=== PATIENT | female | born 1945 | race Caucasian/White ===

== ENCOUNTER 2017-07-16 14:59 | Outpatient (CLI) | payer MEDICARE, OTHER ==
--- NOTE | 2017-07-23 08:20 | MMO ---
BILATERAL SCREENING MAMMOGRAM: DATE: 07/16/2017 HISTORY: A 71-year-old female for screening mammography. COMPARISON: 06/28/2012. FINDINGS: Bilateral MLO and CC views of the breasts show scattered fibroglandular breast tissue. Bilateral va scular calcifications are seen. Other benign-appearing calcifications are seen in the both breasts. There is no evidence of suspicious mass, suspicious cluster of microcalcifications, or area of arch itectural distortion. Interpretation of this mammogram was performed with the assistance of computer-aided detection. IMPRESSION: BIRADS 2: Benign Finding(s) Annual screening mammography is recommended. POS: [facility]
== END 2017-07-16 15:00 | disposition home or self-care (01) ==
LOC: MAMMO 14:59
PROVIDERS: ATTEND Family Medicine
DX: Z12.31 Encounter for screening mammogram for malignant neoplasm of breast (principal)
CPT/HCPCS: 77067; G0202

== ENCOUNTER 2018-03-22 13:55 | Outpatient (CLI) | payer MEDICARE ==
--- NOTE | 2018-03-22 15:58 | PET ---
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 TECHNIQUE: PET CT of the brain is performed following the intravenous administration of 7.5 millicuries of 15-fl uorodeoxyglucose in the left arm antecubital fossa. FINDINGS: Fairly symmetric FDG localization is seen in the hemispheres bilaterally. No significant hypometabolism is seen in the temporoparietal lobes. IMPRESSION: Unremarkable exam. POS: [facility]
== END 2018-03-22 13:56 | disposition home or self-care (01) ==
LOC: PET 13:55
PROVIDERS: ATTEND Psychiatry & Neurology Neurology
DX: G31.1 Senile degeneration of brain, not elsewhere classified (principal)
CPT/HCPCS: 78608; A9552

== ENCOUNTER 2018-09-12 13:57 | Outpatient (CLI) | payer MEDICARE | END 2018-09-12 13:58 | disposition home or self-care (01) | LOC: BICMAMMO 13:57 | PROVIDERS: ATTEND Family Medicine | DX: Z12.31 Encounter for screening mammogram for malignant neoplasm of breast (principal); Z80.3 Family history of malignant neoplasm of breast | CPT/HCPCS: 77063; 77067 ==